=== PATIENT | female | born 1935 | race Caucasian/White ===

== ENCOUNTER 2020-03-14 09:28 | Outpatient (REF) | payer MEDICARE, SELFPAY | END 2020-03-14 09:29 | disposition home or self-care (01) | LOC: HO.LAB 09:28 | PROVIDERS: PCP Internal Medicine; Visit Provider Internal Medicine | DX: Z20.828 Contact with and (suspected) exposure to other viral communicable diseases (principal) | CPT/HCPCS: 36415; C9803; U0003 ==

== ENCOUNTER 2021-05-20 08:14 | Outpatient (REF) | payer MEDICARE, SELFPAY ==
[2021-05-20 09:34] LABS: Alanine Aminotransferase 13 U/L (0-31); Albumin Level 3.9 g/dL (3.5-5.0); Alkaline Phosphatase 91 U/L (39-117); Anion Gap 13 (12-20); Aspartate Amino Transferase 22 U/L (5-31); Bilirubin Total 0.3 mg/dL (0.0-1.0); Blood Urea Nitrogen 12 mg/dL (9-16); Calcium 9.5 mg/dL (8.4-10.2); Carbon Dioxide 25 mmol/L (22-29); Chloride 101 mmol/L (96-108); Cholesterol 180 mg/dL; Estimated Glomerular Filt Rate > 60; Glucose Fasting 100 mg/dL (60-99); HDL Cholesterol 53 mg/dL; LDL Cholesterol Calculated 110 mg/dl; Potassium 4.6 mmol/L (3.3-5.1); Sodium 134 mmol/L (135-145); Total Protein 7.6 g/dL (6.5-8.0); Triglycerides 88 mg/dL
[2021-05-25 13:51] LABS: Vitamin D 25-OH, D2 <4 ng/mL; Vitamin D 25-OH, D3 35 ng/mL; Vitamin D 25-OH, Total 35 ng/mL (30-100)
== END 2021-05-20 08:15 | disposition home or self-care (01) ==
LOC: HO.LAB 08:14
PROVIDERS: PCP Internal Medicine; Visit Provider Internal Medicine
DX: E55.9 Vitamin D deficiency, unspecified (principal); R03.0 Elevated blood-pressure reading, without diagnosis of hypertension; E78.5 Hyperlipidemia, unspecified
CPT/HCPCS: 36415; 80053; 80061; 82306

== ENCOUNTER 2022-01-14 07:55 | Outpatient (REF) | payer MEDICARE, SELFPAY ==
[2022-01-14 10:18] LABS: Alanine Aminotransferase 14 U/L (0-31); Albumin Level 4.1 g/dL (3.5-5.0); Alkaline Phosphatase 92 U/L (39-117); Anion Gap 16 (12-20); Aspartate Amino Transferase 21 U/L (5-31); Bilirubin Total 0.5 mg/dL (0.0-1.0); Blood Urea Nitrogen 12 mg/dL (9-16); Calcium 9.3 mg/dL (8.4-10.2); Carbon Dioxide 23 mmol/L (22-29); Chloride 101 mmol/L (96-108); Cholesterol 183 mg/dL; Estimated Glomerular Filt Rate > 60; Glucose Fasting 106 mg/dL (60-99); HDL Cholesterol 55 mg/dL; LDL Cholesterol Calculated 109 mg/dl; Potassium 4.5 mmol/L (3.3-5.1); Sodium 135 mmol/L (135-145); Total Protein 7.6 g/dL (6.5-8.0); Triglycerides 99 mg/dL
== END 2022-01-14 07:56 | disposition home or self-care (01) ==
LOC: HO.LAB 07:55
PROVIDERS: PCP Internal Medicine; Visit Provider Internal Medicine
DX: R03.0 Elevated blood-pressure reading, without diagnosis of hypertension (principal); E87.1 Hypo-osmolality and hyponatremia
CPT/HCPCS: 36415; 80053; 80061

== ENCOUNTER 2022-07-10 08:10 | Outpatient (REF) | payer MEDICARE, SELFPAY ==
[2022-07-10 09:22] LABS: Alanine Aminotransferase 13 U/L (0-31); Alkaline Phosphatase 94 U/L (39-117); Anion Gap 11 (12-20); Aspartate Amino Transferase 21 U/L (5-31); Bilirubin Total 0.7 mg/dL (0.0-1.0); Blood Urea Nitrogen 14 mg/dL (9-16); Calcium 9.4 mg/dL (8.4-10.2); Carbon Dioxide 25 mmol/L (22-29); Chloride 102 mmol/L (96-108); Cholesterol 188 mg/dL; Estimated Glomerular Filt Rate > 60; Glucose Fasting 100 mg/dL (60-99); HDL Cholesterol 54 mg/dL; LDL Cholesterol Calculated 116 mg/dl; Potassium 4.3 mmol/L (3.3-5.1); Sodium 134 mmol/L (135-145); Total Protein 7.3 g/dL (6.5-8.0); Triglycerides 93 mg/dL
== END 2022-07-10 08:11 | disposition home or self-care (01) ==
LOC: HO.LAB 08:10
PROVIDERS: PCP Internal Medicine; Visit Provider Internal Medicine
DX: Z00.00 Encounter for general adult medical examination without abnormal findings (principal); E78.5 Hyperlipidemia, unspecified
CPT/HCPCS: 36415; 80053; 80061

== ENCOUNTER 2023-01-27 08:51 | Outpatient (AMB) | payer MEDICARE, SELFPAY ==
[2023-01-27 09:02] VITALS: BP 150/80; PULSE 80; O2SAT 98; BMI 22.3
--- NOTE | 2023-01-27 09:02 | A.OFFPC_ITS ---
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: No Accompanied by: Self / Same As Patient Allergies benzalkonium chloride Allergy (Severe, Verified 01/27/23 09:12) fatigue, weekness aspirin Adverse Reaction (Severe, Verified 01/27/23 09:12) bleeding preservatives Allergy (Uncoded 01/27/23 09:12) Unknown beta blockers Adverse Reaction (Mild, Uncoded 01/27/23 09:12) Confusion Medication List - Last Reconciled 01/27/23 by Zee King MD latanoprost 0.005% (Xelpros) 1 drp ophthalmic (eye) QPM vit C,D-Sm-hmwwi-lutein-zeaxan 250-90-40-1 mg (PreserVision AREDS-2) 1 tab PO BID Tobacco use date assessed: 07/22/22 Fall risk assessment: No Falls in past year Last assessed Fall Risk: 01/27/23 Dental Screening Dental Screen Date: 01/27/23 Did you have a dental visit in the last 12 months?: Yes Did you have a dental problem in the last 6 months where you did not have access to dental care?: No Was dental information given to patient?: Patient has dentist HPI HPI Comments History of Present Illness Details This is an 87-year-old female that comes for her physical exam. Has elevated blood pressure but declines any treatment. 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 No need for Pap smear, mammogram or colonoscopy due to age. Declines flu vaccine. [facility] Medical History (Updated 01/27/23 @ 09:37 by Zee King MD) Hyponatremia Elevated blood pressure reading in office with white coat syndrome, without diagnosis of hypertension Herpes zoster White coat syndrome without hypertension Glaucoma Surgical History History of benign breast tumor History of ankle surgery History of eye surgery Family History Father Stroke Mother Stroke Social History Housing: Apartment Alcohol intake: never Patient Tobacco Use Status: Never used Tobacco e-Cigarette/Vaping Use: Never Used Second Hand Smoke Exposure: No service: No Current occupational status: retired Cognitive needs: No Hearing needs: No Vision needs: Yes Questionnaire Thrive Questionnaire Date Thrive assessed: 07/22/22 SARTHAK-7 AMB Questionnaire SARTHAK-7 Date SARTHAK - 7 assessed: 07/22/22 Source: Developed by Drs. Mihai Cavanaugh, Dana Camara, Festus Barnard and colleagues, with an educational bethany from [employer]. Review of Systems Const All systems reviewed & are unremarkable except as noted in HPI and below Eyes Reports no additional complaints, Denies change in vision and Denies other visual disturbances Card Denies chest pain at rest, Denies chest pain with activity, Denies edema, Denies irregular heart rhythm, Denies claudication, Denies dyspnea, Denies dyspnea on exertion, Denies orthopnea, Denies paroxysmal nocturnal dyspnea and Denies slow heart rate Resp Denies cough, Denies dyspnea and Denies dyspnea on exertion GI Denies abdominal pain, Denies change in bowel habits, Denies excessive flatus, Denies nausea and Denies vomiting Denies urinary incontinence, Denies urinary hesitancy and Denies urinary urgency Musc Denies abnormal gait, Denies atrophy, Denies deformity and Denies limited range of motion Skin/Breast Denies bleeding lesions, Denies changing lesions and Denies rash Neuro Denies abnormal gait and Denies lack of coordination Physical exam (Primary Care) Vital Signs: Last Vital Signs Pulse 80 01/27/23 09:02 BP 150/80 H 01/27/23 09:02 Pulse Ox 98 01/27/23 09:02 Oxygen Delivery Method Room Air 01/27/23 09:02 BMI result Body Mass Index 22.3 Tobacco/Smoking Status: Tobacco use Status Tobacco use date assessed 07/22/22 01/27/23 09:05 Patient Tobacco Use Status Never used Tobacco 01/27/23 09:05 e-Cigarette/Vaping Use Never Used 01/27/23 09:05 Thrive Assessment: Date of Thrive Assessment Date Thrive assessed 07/22/22 01/27/23 09:05 Const Orientation/consciousness: patient oriented x3 HENMT Head: Yes normal to inspection, Yes normocephalic and Yes atraumatic Ears: external ears normal Eyes General: appearance normal, both eyes and all related structures Eyelids: Yes eyelids normal Conjunctivae: conjunctivae normal Neck Neck: Yes normal visual inspection and Yes supple Resp Effort & Inspection: normal respiratory effort Auscultation: clear to auscultation bilaterally Cardio Jugular venous distension: no JVD Rate: regular rate Rhythm: regular rhythm Heart sounds: S1 normal heart sound present and S2 normal heart sound present GI Inspection: Yes normal to inspection Palpation (GI): Soft to palpation and nontender Auscultation: normal bowel sounds Skin General skin exam: no rashes or lesions noted Neuro General: patient oriented x3 and no focal motor deficits Extrem General: Yes full ROM Psych Appearance: grossly normal Office Procedures Flu Questionnaire Does the patient have a severe egg allergy?: No Immunizations flu vacc [id number] 6mos up(PF) 60 mcg(15 mcgx4)/0.5 mL IM syringe Performing Provider: Zee King MD [facility] Documented (not given) by: MONSERRAT Perera on 01/27/23 09:05 Reason Not Given: Patient Refused Assessment and Plan Assessment & Plan (1) Physical exam: Code(s): Z00.00 - Encounter for general adult medical examination without abnormal findings Plan: Repeat in a year. Orders: Orders Influenza [id number] Immunization Today Z23 - Encounter for immunization Coding Level of Care Code Est Pt Prev Care >65y(09959) Diagnoses Physical exam Z00.00 Time Spent (min) 31
== END 2023-01-27 09:34 | disposition home or self-care (01) ==
PROVIDERS: Visit Provider Internal Medicine
DX: Z00.00 Encounter for general adult medical examination without abnormal findings (principal)
CPT/HCPCS: 99397

== ENCOUNTER 2023-07-24 09:27 | Outpatient (REF) | payer MEDICARE, SELFPAY | END 2023-07-24 09:28 | disposition home or self-care (01) | LOC: HO.SH 09:27 | PROVIDERS: Visit Provider Internal Medicine | DX: Z01.118 Encounter for examination of ears and hearing with other abnormal findings (principal); H90.3 Sensorineural hearing loss, bilateral | CPT/HCPCS: 92557 ==

== ENCOUNTER 2023-07-24 10:41 | Outpatient (REF) | payer SELFPAY ==
--- NOTE | 2023-07-24 14:10 | MHC.AU.MED ---
Medical Clearance for Hearing Instrumentation Date: 07/24/23 Patient Name: Sister Barby Espinoza Date of : 1935 Primary Care Provider: Referring Provider: Zee King MD We have seen your patient on 07/24/23 and have determined that they are a candidate for amplification (See accompanying report). Specifically, they would benefit from: Hearing aid use in both ears There is a statute that addresses Medical Evaluation Requirements prior to fitting a patient with a hearing aid. According to [place] statute 265 CMR:6.03(1), (a) General. Except as provided in 265 CMR 6.03(1)(b), a director of collections shall not sell a hearing aid unless the prospective user has presented to the director of collections a written statement signed by a licensed physician that states that the patient's hearing loss has been medically evaluated and the patient may be considered a candidate for a hearing aid. The medical evaluation must have taken place within the preceding six months. Please note: Due to the [place] Statute referenced above, we cannot accept a signature other than that of a licensed physician. DIRECTOR OF MARKETING ANALYTICS and PA signatures cannot be accepted. I am in agreement with the above recommendation. There is no medical contraindication for hearing instrumentation. Physician Signature Date Physician Name (Printed)
== END 2023-07-24 10:42 | disposition home or self-care (01) ==
LOC: HO.HAP 10:41
PROVIDERS: Visit Provider Internal Medicine
DX: Z46.1 Encounter for fitting and adjustment of hearing aid (principal); H90.3 Sensorineural hearing loss, bilateral
CPT/HCPCS: 92590

== ENCOUNTER 2023-07-28 10:01 | Outpatient (AMB) | payer MEDICARE, SELFPAY ==
[2023-07-28 10:04] VITALS: BP 158/76; BMI 22.5
--- NOTE | 2023-07-28 10:04 | MHC.PC.OV ---
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: No Accompanied by: staff Allergies benzalkonium chloride Allergy (Severe, Verified 07/28/23 10:26) fatigue, weekness aspirin Adverse Reaction (Severe, Verified 07/28/23 10:26) bleeding preservatives Allergy (Uncoded 07/28/23 10:26) Unknown Medication List - Last Reconciled 07/28/23 by Zee King MD latanoprost 0.005% (Xelpros) 1 drp ophthalmic (eye) QPM tafluprost (PF) 0.0015% (Zioptan (PF)) 1 drp ophthalmic (eye) DAILY vit C,H-Xh-jwryn-lutein-zeaxan 250-90-40-1 mg (PreserVision AREDS-2) 1 tab PO BID Tobacco use date assessed: 07/28/23 Fall risk assessment: No Falls in past year Last assessed Fall Risk: 07/28/23 Dental Screening Dental Screen Date: 07/28/23 Did you have a dental visit in the last 12 months?: Yes Did you have a dental problem in the last 6 months where you did not have access to dental care?: No Was dental information given to patient?: Patient has dentist HPI HPI Comments History of Present Illness Details This is an 88-year-old female with elevated blood pressure secondary to white coat syndrome that comes today accompanied by nurse from the place that she lives in for follow-up on her conditions. Blood pressure elevated today but at home last blood pressure readings has been 119/76. Denies any chest pain or shortness of breath. No fever or cough. Last labs last year were within normal limits and I do not feel the need to repeat them. Glaucoma is follow by Ophthalmology. [facility] Medical History (Updated 07/28/23 @ 11:18 by Zee King MD) Elevated blood pressure reading in office with white coat syndrome, without diagnosis of hypertension Essential hypertension Hyponatremia Herpes zoster White coat syndrome without hypertension Glaucoma Surgical History History of benign breast tumor History of ankle surgery History of eye surgery Family History Father Stroke Mother Stroke Social History Housing: Apartment Alcohol intake: never Patient Tobacco Use Status: Never used Tobacco e-Cigarette/Vaping Use: Never Used Second Hand Smoke Exposure: No service: No Current occupational status: retired Cognitive needs: No Hearing needs: No Vision needs: Yes Questionnaire PHQ-9 Over the last 2 weeks, how often have you been bothered by any of the following problems? 1. Little interest or pleasure in doing things: not at all 2. Feeling down, depressed, or hopeless: not at all 3. Trouble falling or staying asleep, or sleeping too much: not at all 4. Feeling tired or having little energy: not at all 5. Poor appetite or overeating: not at all 6. Feeling bad about yourself - or that you are a failure or have let yourself or your family down: not at all 7. Trouble concentrating on things, such as reading the newspaper or watching television: not at all 8. Moving or speaking so slowly that other people could have noticed. Or the opposite - being so fidgety or restless that you have been moving around a lot more than usual: not at all 9. Thoughts that you would be better off or of hurting yourself in some way: not at all Total score: 0 Depression Screening Interpretation: Negative Depression Screening Done: Yes 82907 - PHQ-9 Billing: Yes Source: Developed by Drs. Mihai Cavanaugh, Dana Camara, Festus Barnard and colleagues, with an educational bethany from [employer]. Thrive Questionnaire Date Thrive assessed: 07/28/23 I am a: Patient What is your living situation today?: I have a steady place to live Within the past 12 months, did the food you bought not last and you didn't have the money to get more?: Never true Within the past 12 months, did you worry whether your food would run out before you got money to buy more?: Never true Do you have trouble paying for medicines?: No Do you have trouble getting transportation to medical appointments?: No Do you have trouble paying your heating and electricity bill?: No Do you have trouble taking care of your child, family member or friend?: No Do you have trouble with day-to-day activities such as bathing, preparing meals, shopping, managing finances, etc.?: No Are you currently unemployed and looking for a job?: No Are you interested in more education?: No Please select the resources that you would like help with: None Currently or been in a relationship where the following occur: no concerns reported THRIVE Score: 0 AUDIT C Alcohol Use Questionnaire (AUDIT-C) 1. How often do you have a drink containing alcohol?: Never Total Score: 0 Score Reviewed/Action Taken: No SARTHAK-7 AMB Questionnaire SARTHAK-7 Date SARTHAK - 7 assessed: 07/28/23 Feeling nervous, anxious, or on edge: 0 = Not at all Not being able to stop or control worryin = Not at all Worrying too much about different things: 0 = Not at all Trouble relaxin = Not at all Being so restless that it is hard to sit still: 0 = Not at all Becoming easily annoyed or irritable: 0 = Not at all Feeling afraid as if something awful might happen: 0 = Not at all Total SARTHAK-7 score (0-4 normal; 5-9 mild; 10-14 moderate; 15-21 severe): 0 Source: Developed by Drs. Mihai Cavanaugh, Dana Camara, Festus Barnard and colleagues, with an educational bethany from [employer]. SARTHAK-7 Assessment Billing SARTHAK-7 Assessment Tool: SARTHAK-7 Assessment 01555 Review of Systems Const All systems reviewed & are unremarkable except as noted in HPI and below Eyes Reports no additional complaints, Denies change in vision and Denies other visual disturbances Card Denies chest pain at rest, Denies chest pain with activity, Denies edema, Denies irregular heart rhythm, Denies claudication, Denies dyspnea, Denies dyspnea on exertion, Denies orthopnea, Denies paroxysmal nocturnal dyspnea and Denies slow heart rate Resp Denies cough, Denies dyspnea and Denies dyspnea on exertion Physical exam (Primary Care) Vital Signs: Last Vital Signs BP 158/76 H 07/28/23 10:04 BMI result Body Mass Index 22.5 Tobacco/Smoking Status: Tobacco use Status Tobacco use date assessed 07/28/23 07/28/23 10:13 Patient Tobacco Use Status Never used Tobacco 07/28/23 10:13 e-Cigarette/Vaping Use Never Used 07/28/23 10:13 PHQ-9: PHQ-9 Score PHQ-9: Total score 0 07/28/23 10:27 Depression Screening Interpretation: Negative Thrive Assessment: Date of Thrive Assessment Date Thrive assessed 07/28/23 07/28/23 10:13 Currently or been in a relationship where the following occur: no concerns reported Resp Effort & Inspection: normal respiratory effort Auscultation: clear to auscultation bilaterally Cardio Jugular venous distension: no JVD Rate: regular rate Rhythm: regular rhythm Heart sounds: S1 normal heart sound present and S2 normal heart sound present Extrem General: Yes full ROM Assessment and Plan Assessment & Plan (1) Elevated blood pressure reading in office with white coat syndrome, without diagnosis of hypertension: Code(s): R03.0 - Elevated blood-pressure reading, without diagnosis of hypertension Plan: Continue blood pressure monitoring at home. Coding Level of Care Code Est Pt Level 3 (03438) Diagnoses Elevated blood pressure reading in office with white coat syndrome, without diagnosis of hypertension R03.0 Additional Codes SARTHAK-7 Assessment Billing - SARTHAK-7 Assessment Tool: SARTHAK-7 Assessment 90259 ([id number]) Time Spent (min) 21
== END 2023-07-28 10:41 | disposition home or self-care (01) ==
PROVIDERS: PCP Internal Medicine; Visit Provider Internal Medicine
DX: R03.0 Elevated blood-pressure reading, without diagnosis of hypertension (principal)
CPT/HCPCS: 99213

== ENCOUNTER 2023-08-13 09:58 | Outpatient (REF) | payer SELFPAY | END 2023-08-13 09:59 | disposition home or self-care (01) | LOC: HO.HAP 09:58 | PROVIDERS: Visit Provider Internal Medicine | DX: Z46.1 Encounter for fitting and adjustment of hearing aid (principal); H90.3 Sensorineural hearing loss, bilateral | CPT/HCPCS: 92700; V5261; V5299 ==

== ENCOUNTER 2023-09-02 11:28 | Outpatient (REF) | payer SELFPAY | END 2023-09-02 11:29 | disposition home or self-care (01) | LOC: HO.HAP 11:28 | PROVIDERS: Visit Provider Internal Medicine | DX: Z13.89 Encounter for screening for other disorder (principal) ==

== ENCOUNTER 2024-02-24 09:15 | Outpatient (AMB) | payer OTHER, SELFPAY ==
[2024-02-24 09:22] VITALS: BP 136/64; PULSE 88; O2SAT 96; BMI 22.1
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
== END 2024-02-24 10:16 | disposition home or self-care (01) ==
PROVIDERS: PCP Internal Medicine; Visit Provider Internal Medicine
DX: Z23 Encounter for immunization (principal); Z00.00 Encounter for general adult medical examination without abnormal findings

== ENCOUNTER → 2024-02-24 09:15 | Outpatient (BNVA) | payer OTHER, SELFPAY | PROVIDERS: PCP Internal Medicine; Visit Provider Internal Medicine | DX: Z00.00 Encounter for general adult medical examination without abnormal findings (principal); I10 Essential (primary) hypertension | CPT/HCPCS: 90471; 96127; 99397 ==

== ENCOUNTER 2024-08-16 08:12 | Outpatient (REF) | payer OTHER, SELFPAY ==
[2024-08-16 10:38] LABS: Alanine Aminotransferase 18 U/L (0-31); Albumin Level 4.2 g/dL (3.5-5.0); Alkaline Phosphatase 90 U/L (39-117); Anion Gap 12 (12-20); Aspartate Amino Transferase 27 U/L (5-31); Bilirubin Total 0.5 mg/dL (0.0-1.0); Blood Urea Nitrogen 13 mg/dL (9-16); Calcium 10.1 mg/dL (8.4-10.2); Carbon Dioxide 28 mmol/L (22-29); Chloride 101 mmol/L (96-108); Cholesterol 179 mg/dL (<200); Estimated Glomerular Filt Rate > 60; Glucose Fasting 104 mg/dL (60-99); HDL Cholesterol 52 mg/dL (>40); LDL Cholesterol Calculated 111 mg/dL (<100); Potassium 4.6 mmol/L (3.3-5.1); Sodium 136 mmol/L (135-145); Total Protein 7.9 g/dL (6.5-8.0); Triglycerides 83 mg/dL (<150)
== END 2024-08-16 08:13 | disposition home or self-care (01) ==
LOC: HO.LAB 08:12
PROVIDERS: PCP Internal Medicine; Visit Provider Internal Medicine
DX: Z00.00 Encounter for general adult medical examination without abnormal findings (principal); E78.5 Hyperlipidemia, unspecified
CPT/HCPCS: 36415; 80053; 80061

== ENCOUNTER 2024-08-24 09:00 | Outpatient (AMB) | payer OTHER, SELFPAY ==
--- NOTE | 2024-08-24 09:03 | MHC.PC.OV ---
Vital Signs 08/24/24 09:09 Height 5 ft 1 in Weight 114 lb BMI 21.5 BP 134/76 Blood Pressure Location Lt brachial Position Sitting Intake Visit Reasons: BP, needs 30 minutes Intake Note: Patient here for a follow up BP Manager Government Required: No Accompanied by: staff/ nurse Allergies benzalkonium chloride Allergy (Severe, Verified 08/24/24 09:25) fatigue, weekness aspirin Adverse Reaction (Severe, Verified 08/24/24 09:25) bleeding preservatives Allergy (Uncoded 08/24/24 09:25) Unknown Medication List - Last Reconciled 08/24/24 by Zee King MD latanoprost 0.005% (Xelpros) 1 drp ophthalmic (eye) QPM tafluprost (PF) 0.0015% (Zioptan (PF)) 1 drp ophthalmic (eye) DAILY vit C,C-Vi-mfgit-lutein-zeaxan 250-90-40-1 mg (PreserVision AREDS-2) 1 tab PO BID Tobacco use date assessed: 08/24/24 Fall risk assessment: 1 Fall in past year Last assessed Fall Risk: 08/24/24 Dental Screening Dental Screen Date: 08/24/24 Did you have a dental visit in the last 12 months?: Yes Did you have a dental problem in the last 6 months where you did not have access to dental care?: No Was dental information given to patient?: Patient has dentist HPI HPI Comments History of Present Illness Details This is an 89-year-old female with elevated blood pressure without the diagnosis of hypertension and she is legally blind. She complains of episodes of urinary incontinence that happens once a month. She also has very rare fecal incontinence. Does not seem to be concerned about this. Denies any chest pain or shortness on breath. Follows with Ophthalmology for her blindness. No chest pain or shortness on breath. [facility] Medical History Elevated blood pressure reading in office with white coat syndrome, without diagnosis of hypertension Essential hypertension Hyponatremia Herpes zoster White coat syndrome without hypertension Glaucoma Surgical History History of benign breast tumor History of ankle surgery History of eye surgery Family History Father Stroke Mother Stroke Social History Housing: Apartment Alcohol intake: never Patient Tobacco Use Status: Never used Tobacco e-Cigarette/Vaping Use: Never Used Second Hand Smoke Exposure: No service: No Current occupational status: retired Cognitive needs: No Hearing needs: No Vision needs: Yes Questionnaire PHQ-9 Over the last 2 weeks, how often have you been bothered by any of the following problems? 1. Little interest or pleasure in doing things: not at all 2. Feeling down, depressed, or hopeless: not at all 3. Trouble falling or staying asleep, or sleeping too much: not at all 4. Feeling tired or having little energy: several days 5. Poor appetite or overeating: several days 6. Feeling bad about yourself - or that you are a failure or have let yourself or your family down: not at all 7. Trouble concentrating on things, such as reading the newspaper or watching television: not at all 8. Moving or speaking so slowly that other people could have noticed. Or the opposite - being so fidgety or restless that you have been moving around a lot more than usual: not at all 9. Thoughts that you would be better off or of hurting yourself in some way: not at all Total score: 2 Depression Screening Interpretation: Negative Depression Screening Done: Yes 71725 - PHQ-9 Billing: Yes Source: Developed by Drs. Mihai Cavanaugh, Dana Camara, Festus Barnard and colleagues, with an educational bethany from [employer]. Thrive Questionnaire Date Thrive assessed: 08/24/24 I am a: Patient What is your living situation today?: I have a steady place to live Within the past 12 months, did the food you bought not last and you didn't have the money to get more?: Never true Within the past 12 months, did you worry whether your food would run out before you got money to buy more?: Never true Do you have trouble paying for medicines?: No Do you have trouble getting transportation to medical appointments?: No Do you have trouble paying your heating and electricity bill?: No Do you have trouble taking care of your child, family member or friend?: No Do you have trouble with day-to-day activities such as bathing, preparing meals, shopping, managing finances, etc.?: No Are you currently unemployed and looking for a job?: No Are you interested in more education?: No Please select the resources that you would like help with: None Currently or been in a relationship where the following occur: No concerns reported THRIVE Score: 0 AUDIT C Alcohol Use Questionnaire (AUDIT-C) 1. How often do you have a drink containing alcohol?: Never Total Score: 0 SARTHAK-7 AMB Questionnaire SARTHAK-7 Date SARTHAK - 7 assessed: 08/24/24 Feeling nervous, anxious, or on edge: 1 = Several days Not being able to stop or control worryin = Not at all Worrying too much about different things: 0 = Not at all Trouble relaxin = Not at all Being so restless that it is hard to sit still: 0 = Not at all Becoming easily annoyed or irritable: 0 = Not at all Feeling afraid as if something awful might happen: 0 = Not at all Total SARTHAK-7 score (0-4 normal; 5-9 mild; 10-14 moderate; 15-21 severe): 1 Source: Developed by Drs. Mihai Cavanaugh, Daan Camara, Festus Barnard and colleagues, with an educational bethany from [employer]. SARTHAK-7 Assessment Billing SARTHAK-7 Assessment Tool: SARTHAK-7 Assessment 92515 Review of Systems Const All systems reviewed & are unremarkable except as noted in HPI and below Card Denies chest pain at rest, Denies chest pain with activity, Denies edema, Denies irregular heart rhythm, Denies claudication, Denies dyspnea, Denies dyspnea on exertion, Denies orthopnea, Denies paroxysmal nocturnal dyspnea and Denies slow heart rate Resp Denies cough, Denies dyspnea and Denies dyspnea on exertion GI Denies abdominal pain, Denies change in bowel habits, Denies excessive flatus, Denies nausea and Denies vomiting Physical exam (Primary Care) Vital Signs: Last Vital Signs BP 134/76 08/24/24 09:09 BMI result Body Mass Index 21.5 Tobacco/Smoking Status: Tobacco use Status Tobacco use date assessed 08/24/24 08/24/24 09:09 Patient Tobacco Use Status Never used Tobacco 08/24/24 09:09 e-Cigarette/Vaping Use Never Used 08/24/24 09:09 PHQ-9: PHQ-9 Score PHQ-9: Total score 2 08/24/24 09:33 Depression Screening Interpretation: Negative Thrive Assessment: Date of Thrive Assessment Date Thrive assessed 08/24/24 08/24/24 09:09 Currently or been in a relationship where the following occur: No concerns reported Resp Effort & Inspection: normal respiratory effort Auscultation: clear to auscultation bilaterally Cardio Jugular venous distension: no JVD Rate: regular rate Rhythm: regular rhythm Heart sounds: S1 normal heart sound present and S2 normal heart sound present GI Inspection: Yes normal to inspection Palpation (GI): Soft to palpation and nontender Auscultation: normal bowel sounds Extrem General: Yes full ROM Coding Level of Care Code Est Pt Level 3 (67010) Complex EM visit Add On G2211 Diagnoses Elevated blood pressure reading in office with white coat syndrome, without diagnosis of hypertension R03.0 Legally blind H54.8 Additional Codes SARTHAK-7 Assessment Billing - SARTHAK-7 Assessment Tool: SARTHAK-7 Assessment 49191 ([id number]) PHQ-9 - 39754 - PHQ-9 Billing: Yes ([id number]) Time Spent (min) 24 Assessment & Plan Assessment & Plan (1) Elevated blood pressure reading in office with white coat syndrome, without diagnosis of hypertension: Code(s): R03.0 - Elevated blood-pressure reading, without diagnosis of hypertension Category: Medical (2) Legally blind: Code(s): H54.8 - Legal blindness, as defined in [place] Category: Medical Plan Follow-up with ophthalmology. Continue blood pressure monitoring at home.
[2024-08-24 09:09] VITALS: BP 134/76; BMI 21.5
== END 2024-08-24 09:56 | disposition home or self-care (01) ==
LOC: HO.HMCH 09:01
PROVIDERS: PCP Internal Medicine; Visit Provider Internal Medicine
DX: R03.0 Elevated blood-pressure reading, without diagnosis of hypertension (principal); H54.8 Legal blindness, as defined in USA

== ENCOUNTER → 2024-08-24 09:00 | Outpatient (BNVA) | payer OTHER, SELFPAY | PROVIDERS: PCP Internal Medicine; Visit Provider Internal Medicine | DX: I10 Essential (primary) hypertension (principal); R32 Unspecified urinary incontinence; R06.02 Shortness of breath; R03.0 Elevated blood-pressure reading, without diagnosis of hypertension; H54.8 Legal blindness, as defined in USA | CPT/HCPCS: 96127; 99212 ==

== ENCOUNTER 2025-02-27 09:02 | Outpatient (AMB) | payer OTHER, SELFPAY ==
--- OUTSIDE RECORDS SUMMARY | 2024-09-01 04:00 | XMS_ITS ---
Author Organization [facility] Address [address] [place] [address] Care Team Providers Care Print Shop Helper Name Role Phone Shantelle VALDEZ, Zee Primary Care Provider Unavail Prince Hodges Unavailable [phone] Encounters Encounter Location Date Provider Diagnosis [address] [id number] 09/01/2024 Prince Dailey Plan Of Treatment Next Appt Details Provider Name:Prince Dailey , 03/20/2025 09:45:00 AM, [address] [place] [address], [id number], Progress Notes * Julia DUMAS SSJDOB:[birth year] (89 yo F)Acc No.[id number]:09/01/2024 Progress Notes Patient: Julia SIMSJ Provider: Hans Dailey DPM :1935 A ge:89 Y S ex:Female Date:09/01/2024 Address:[address] [place] [address], [address], [place] [id number] Pcp:Zee Pepper MD Subjective: * Chief Complaints: * * Medical History: Objective: * Vitals: Assessment: Plan: * Treatment: * Images: * The named appointment provid er may or may not be the originator of this progress note, and it is not deemed complete until electronically signed by the appointment provider. Sign off status: Pending * Provider: Hans Dailey DPM Date: 0 09/01/2024 Generated for Jerald linda/Luisana/Kenzie on: 1 04/30/2024 09:52 AM EST
[2025-02-27 09:05] VITALS: BP 198/86; PULSE 87; RESP 18; O2SAT 97
--- NOTE | 2025-02-27 09:05 | A.OFFPC_ITS ---
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: No Accompanied by: Self / Same As Patient Allergies benzalkonium chloride Allergy (Severe, Verified 02/27/25 09:25) fatigue, weekness aspirin Adverse Reaction (Severe, Verified 02/27/25 09:25) bleeding preservatives Allergy (Uncoded 02/27/25 09:25) Unknown Medication List - Last Reconciled 02/27/25 by Zee King MD latanoprost 0.005% (Xelpros) 1 drp ophthalmic (eye) QPM tafluprost (PF) 0.0015% (Zioptan (PF)) 1 drp ophthalmic (eye) DAILY vit C,Q-Uv-qccvf-lutein-zeaxan 250-90-40-1 mg (PreserVision AREDS-2) 1 tab PO BID Tobacco use date assessed: 02/27/25 Fall risk assessment: 1 Fall in past year Last assessed Fall Risk: 02/27/25 Dental Screening Dental Screen Date: 02/27/25 Did you have a dental visit in the last 12 months?: Yes Did you have a dental problem in the last 6 months where you did not have access to dental care?: No Was dental information given to patient?: Patient has dentist HPI HPI Comments History of Present Illness0 Details This is an 89-year-old female that comes for her physical exam. She declines flu vaccine or any other type of vaccine. No need for colonoscopy or mammograms due to age. Blood pressure elevated today but at home is less than 130/80. [facility] Medical History Elevated blood pressure reading in office with white coat syndrome, without diagnosis of hypertension Essential hypertension Hyponatremia Herpes zoster White coat syndrome without hypertension Glaucoma Surgical History History of benign breast tumor History of ankle surgery History of eye surgery Family History Father Stroke Mother Stroke Social History Housing: Apartment Alcohol intake: never Patient Tobacco Use Status: Never used Tobacco e-Cigarette/Vaping Use: Never Used Second Hand Smoke Exposure: No service: No Current occupational status: retired Cognitive needs: No Hearing needs: No Vision needs: Yes Questionnaire Thrive Questionnaire Date Thrive assessed: 02/27/25 I am a: Patient What is your living situation today?: I have a steady place to live Within the past 12 months, did the food you bought not last and you didn't have the money to get more?: Never true Within the past 12 months, did you worry whether your food would run out before you got money to buy more?: Never true Do you have trouble paying for medicines?: No Do you have trouble getting transportation to medical appointments?: No Do you have trouble paying your heating and electricity bill?: No Do you have trouble taking care of your child, family member or friend?: No Do you have trouble with day-to-day activities such as bathing, preparing meals, shopping, managing finances, etc.?: No Are you currently unemployed and looking for a job?: No Are you interested in more education?: No Currently or been in a relationship where the following occur: No concerns reported THRIVE Score: 0 SARTHAK-7 AMB Questionnaire SARTHAK-7 Date SARTHAK - 7 assessed: 08/24/24 Source: Developed by Drs. Mihai Cavanaugh, Dana Camara, Festus Barnard and colleagues, with an educational bethany from [employer]. Review of Systems Const All systems reviewed & are unremarkable except as noted in HPI and below Card Denies chest pain at rest, Denies chest pain with activity, Denies edema, Denies irregular heart rhythm, Denies claudication, Denies dyspnea, Denies dyspnea on exertion, Denies orthopnea, Denies paroxysmal nocturnal dyspnea and Denies slow heart rate Resp Denies cough, Denies dyspnea and Denies dyspnea on exertion GI Denies abdominal pain, Denies change in bowel habits, Denies excessive flatus, Denies nausea and Denies vomiting Physical exam (Primary Care) Vital Signs: Last Vital Signs Pulse 87 02/27/25 09:05 Resp 18 02/27/25 09:05 BP 198/86 H 02/27/25 09:05 Pulse Ox 97 02/27/25 09:05 Oxygen Delivery Method Room Air 02/27/25 09:05 BMI result Body Mass Index 20.0 Tobacco/Smoking Status: Tobacco use Status Tobacco use date assessed 02/27/25 02/27/25 09:16 Patient Tobacco Use Status Never used Tobacco 02/27/25 09:16 e-Cigarette/Vaping Use Never Used 02/27/25 09:16 Thrive Assessment: Date of Thrive Assessment Date Thrive assessed 02/27/25 02/27/25 09:16 Currently or been in a relationship where the following occur: No concerns reported HENLA Head: Yes normal to inspection, Yes normocephalic and Yes atraumatic Ears: external ears normal Eyes General: appearance normal, both eyes and all related structures Eyelids: Yes eyelids normal Conjunctivae: conjunctivae normal Neck Neck: Yes normal visual inspection and Yes supple Resp Effort & Inspection: normal respiratory effort Auscultation: clear to auscultation bilaterally Cardio Jugular venous distension: no JVD Rate: regular rate Rhythm: regular rhythm Heart sounds: S1 normal heart sound present and S2 normal heart sound present GI Inspection: Yes normal to inspection Palpation (GI): Soft to palpation and nontender Auscultation: normal bowel sounds Skin General skin exam: no rashes or lesions noted Neuro General: no focal motor deficits Extrem General: Yes full ROM Psych Appearance: grossly normal Coding Level of Care Code Est Pt Prev Care >65y(11110) Diagnoses Physical exam Z00.00 Time Spent (min) 30 Assessment & Plan Assessment & Plan (1) Physical exam: Code(s): Z00.00 - Encounter for general adult medical examination without abnormal findings Category: Medical Plan Repeat in a year. Keep blood pressure less than 130/80.
--- OUTSIDE RECORDS SUMMARY | 2025-02-27 09:52 | XMS_ITS | Patient Health Record ---
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 Name Role Phone Zee Pepper MD Primary Care Provider Unavail able Prince Dailey Unavailable [phone] Allergies Allergen (clinical drug ingredient) Drug/Non Drug Allergy documented on EMR Reaction Allergy Type Onset Date Status ibuprofen Advil Unknown Drug Allergy Active aspirin Aspirin Unknown Drug Allergy Active Benzalkonium Chloride Unknown Drug Allergy Active Reason For Referral No Information Medications Medication SIG (Take, Route, Fr equency, Duration) Notes Start Date End Date Status PreserVision AREDS 2 Active Zioptan Active Multivitamin Active Calcium + D3 Active Flaxseed Oil Active Immunizations Vaccine Route Administration Date Status Comme nts Influenza Unknown 08/31/2024 Refused Social History Tobacco Use: Social History Observation Description Date Details (start date - stop date) Never Smoker NA - NA Tobacco use other than smoking: Question Answer Notes Are you an other tobacco user? No Tobacco Control (Standard) Question Answer Notes Tobacco use: Nonsmoker Additional Findings: Tobacco non-user Current no nsmoker AUDIT-C (Standard) Question Answer Notes Did you have a drink containing alcohol in the p ast year? No Points 0 Interpretation Negative Problems Problem Type SNOMED Code ICD Code Onset Dates Problem Status W/U Status Risk Notes Problem Bilateral atherosclerosis of arteries of lower limbs (disorder) ([id number] ) Atherosclerosis of artery of both lower extremities (I70.203) Active confirmed Q7(A), Q8(2B), Q9(1B,2 C) Vital Signs Blood pressure diastolic 75 mm Hg 12/01/2024 Height 5ft 1in in 12/01/2024 Blood pressure systolic 118 mm Hg 12/01/2024 Weight 109 lbs 12/01/2024 BMI 20.59 kg/m2 12/01/2024 Procedures Procedure Date Ordered Date Performed Result Body Sit e 66712-VTNG SKIN LESION 08/31/2024 N/A E3646-[id number] DYSTROPHIC NAILS ANY # 08/31/2024 N/A 22673-MNGK SKIN LESION 12/01/2024 N/A H4275-[id number] DYSTROPHIC NAILS ANY # 12/01/2024 N/A Encounters Encounter Location Date Provider Diagnosis [address] [address] 08/31/2024 Prince Dailey Atherosclerosis of artery of both lower extremities I70.203 ; Other hammer toe(s) (acquired), right foot M20.41 ; Arthritis of joint of lesser toe, right M19.071 ; Other hammer toe(s) (acquired), left foot M20.42 and Arthritis of joint of lesser toe, left M19.[address] [address] 12/01/2024 Prince Dailey Atherosclerosis of artery of both lower extremities I70.[facility] [address] 06/07/2024 Prince Dailey Assessments Encounter Date Diagnosis (ICD Code) Assessment Notes Treatment Notes Treatment Clinical Notes Section Notes 08/31/2024 Other hammer toe(s) (acquired), right foot (ICD-10 - M20.41) 08/31/2024 Atherosclerosis of artery of both lower extremities (ICD-10 - I70.203) Q7(A), Q8(2B), Q9(1B,2C) 12/01/2024 Atherosclerosis of artery of both lower extremities (ICD-10 - I70.203) Q7(A), Q8(2B), Q9(1B,2C) 08/31/2024 Arthritis of joint of lesser toe, right (ICD-10 - M19.071) 08/31/2024 Other hammer toe(s) (acquired), left foot (ICD-10 - M20.42) 08/31/2024 Arthritis of joint of lesser toe, left (ICD-10 - M19.072) Plan Of Treatment Pending Test Test Name Order Date 81600-PMBQ SKIN LESION 08/31/2024 82947-IYJR SKIN LESION 12/01/2024 [id number] DYSTROPHIC NAILS ANY # [id number] DYSTROPHIC NAILS ANY # Next Appt Details Provider Name:Prince Garcia Asim , 03/20/2025 09:45:00 AM, [address] [facility], [facility] [address], [place], [address], Insurance Providers Payer Name Payer Address Payer Phone Subscriber Number Group Number Insured Name Patient Relationship to Insured Coverage Start Date Coverage End Date [facility] [employer] Claims [address] [place] [id number] Julia Espinoza Self - patient is the insured Medical (General) History Medical History History ICD Code Arthritis Back pain hip pain Cataracts Glaucoma Macular degeneration Stomach ulcer Measles Mumps Chicken pox Surgical History Surgery Date(Month/Year) left breast 1994 left ankle left upper arm
== END 2025-02-27 09:45 | disposition home or self-care (01) ==
LOC: HO.HMCH 09:03
PROVIDERS: PCP Internal Medicine; Visit Provider Internal Medicine
DX: Z00.00 Encounter for general adult medical examination without abnormal findings (principal)

== ENCOUNTER → 2025-02-27 09:02 | Outpatient (BNVA) | payer OTHER, SELFPAY | PROVIDERS: PCP Internal Medicine; Visit Provider Internal Medicine | DX: Z00.00 Encounter for general adult medical examination without abnormal findings (principal) | CPT/HCPCS: 99397 ==